=== PATIENT | male | born 1980 | race Caucasian/White ===

== ENCOUNTER 2017-04-13 12:28 | Inpatient (IN) | payer BC, OTHER ==
[~2017-04-13] VITALS: Ht 188 cm; Wt 99.8 kg
[2017-04-13 18:39] VITALS: BP 136/61
--- NOTE | 2017-04-13 18:39 | NUR ---
INTAKE ASSESSMENT Received patient in intake. He is AOX4, stable, and ambulatory. Vital signs WNL. Patient reports NKA. Pt denies any history of seizures. Explained unit protocols and patient verbalized understanding. Will admit patient upon admission to third floor.
[2017-04-13 19:15] LABS: *AMPHETAMINE, URINE NEGATIVE (NEGATIVE); *BARBITURATE, URINE NEGATIVE (NEGATIVE); *CANNABINOID, URINE NEGATIVE (NEGATIVE); *COCCAINE, URINE NEGATIVE (NEGATIVE); *OPIATE, URINE POSITIVE (NEGATIVE); *PHENCYCLIDINE SCREEN,URINE NEGATIVE (NEGATIVE)
--- NOTE | 2017-04-13 19:15 | NUR ---
ADMISSION NOTE Pt arrived ambulatory from [facility] Intake to the third floor accompanied by a SWITCHBOARD OPERATOR at 1900. Pt is a 36 year old male admitted on 04/13/17 for Opiate dependency. Pt is full code with NKA. Pt reports a PMHx of depression and Hep C +. He denies having a PCP and denies taking any home medications. He denies any recent tremors, sweats, falls or seizures. 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 He reports that he was sober from May 2014-October 03, 2016. He has been trying to taper himself off from Heroin by taking Subutex and reports being unsuccessful. He describes his current use as: 1. Heroin 0.5 gram IV daily for 6 months Last dose: 04/12/17 0.5 gram IV 2 Subutex 8mg off and on for 6 months Last dose: 14 mg on 04/13/17 Pt describes his withdrawal symptoms as " cold sweats, body aches, nausea and stomach cramps" Upon assessment, pt is alert and oriented x4, anxious, restless and cooperative. Speech is clear and audible. Heart rate is regular. Pt denies chest pain or SOB. PERRLA, breathing is even and unlabored, lung sounds clear. Abdomen is soft and non distended. Bowel sounds present in all quadrants, last BM 04/13/17. Pt reports that BM is regular. Pt's skin is warm, dry and intact. MD made aware of admission. Pt oriented to room and unit. Pt is safe with bed locked in lowest position, side rails up x2 and call light within reach. Will continue to monitor.
[2017-04-13] MEDS ORDERED: CLONIDINE HCL 0.1 MG TABLET PO PRN (20:15)
[2017-04-13] MEDS ORDERED: METHOCARBAMOL 750 MG TABLET PO PRN (20:15)
[2017-04-13] MEDS ORDERED: diphenhydrAMINE 50 MG CAPSULE PO PRN (20:15)
[2017-04-13] MEDS ORDERED: IBUPROFEN 400 MG TABLET PO PRN (20:15)
[2017-04-13] MEDS ORDERED: DICYCLOMINE HCL 20 MG TABLET PO PRN (20:15)
[2017-04-13] MEDS ORDERED: HYDROXYZINE PAMOATE 25 MG CAPSULE PO PRN (20:15)
[2017-04-13] MEDS ORDERED: MAG HYDROX/AL HYDROX/SIMETH 30 ML LIQUID UDC PO PRN (20:15)
[2017-04-13] MEDS ORDERED: ONDANSETRON ODT 4 MG TAB.RAPDIS SL PRN (20:15)
[2017-04-13] MEDS ORDERED: MAGNESIUM HYDROXIDE 30 ML LIQUID UDC PO PRN (20:15)
[2017-04-13] MEDS ORDERED: MIRALAX 17 GM POWD.PACK PO PRN (20:15)
[2017-04-13] MEDS ORDERED: LOPERAMIDE HCL 2 MG CAPSULE PO PRN ×2 (20:15)
[2017-04-13] MEDS ORDERED: ACETAMINOPHEN 325 MG TABLET PO PRN (20:15)
[2017-04-13] MEDS ORDERED: BUPRENORPHINE HCL 2 MG TAB.SUBL SL PRN (20:15)
[2017-04-13] MEDS ORDERED: ONDANSETRON 4 MG/2 ML VIAL IM PRN (20:15)
--- NOTE | 2017-04-13 20:52 | NUR ---
ONE TIME ATIVAN/PRN ROBAXIN Pt observed to be anxious and restless. Pt also complains of body aches. MD made aware. One time Ativan 2 mg and PRN Robaxin administered as ordered. Safety measures in place. Will monitor effectiveness.
[2017-04-13] MEDS ORDERED: LORAZEPAM 1 MG TABLET PO ONE (21:00)
[2017-04-13 21:04] LABS: BASOPHILS # (AUTO) 0.1 K/uL (0.0-8.0); EOSINOPHILS # (AUTO) 0.1 K/uL (0.0-0.7); EOSINOPHILS % (AUTO) 2.4 % (0.0-7.0); HEMOGLOBIN 15.6 G/DL (14.0-18.0); LYMPHOCYTES # (AUTO) 1.5 K/UL (0.8-4.8); MEAN CORPUSCULAR HEMOGLOBIN 28.3 UUG (27.0-31.0); MEAN CORPUSCULAR HGB CONC 33 g/dL (32.0-37.0); MEAN CORPUSCULAR VOLUME 85.3 FL (82.0-92.0); MONOCYTES # (AUTO) 0.6 K/UL (0.1-1.30); MONOCYTES % (AUTO) 12.6 % (0.0-11.0); NEUTROPHILS # (AUTO) 2.8 K/UL (1.8-8.9); PLATELET COUNT (AUTO) 182 K/UL (150-450); RED BLOOD CELL COUNT(AUTO) 5.51 MIL/UL (4.7-6.1); WHITE BLOOD COUNT (AUTO) 5.1 K/UL (4.0-11.2)
[2017-04-13 21:07] LABS: ALANINE AMINOTRANSFERASE 137 U/L (16-63); ALKALINE PHOSPHATASE 87 U/L (50-136); AMYLASE 75 U/L (25-115); ASPARTATE AMINOTRANSFERASE 56 U/L (15-37); BILIRUBIN,TOTAL 0.8 mg/dL (0.2-1.0); CARBON DIOXIDE 33 mmol/L (21-32); CHLORIDE 101 mmol/L (98-107); GLUCOSE 79 mg/dL (74-106); LIPASE 133 U/L (73-393); MAGNESIUM 2.2 mg/dL (1.8-2.4); POTASSIUM 3.8 mmol/L (3.5-5.1); TOTAL PROTEIN, SERUM 7.6 g/dL (6.4-8.2); UREA NITROGEN, BLOOD 22 mg/dL (7-18)
[2017-04-13 21:09] LABS: ETHANOL < 3 MG/DL (0-0)
[2017-04-13 21:18] LABS: THYROID STIMULATING HORMONE 0.612 mIU/mL (0.358-3.740)
--- NOTE | 2017-04-13 21:52 | NUR ---
REASSESSMENT Medications effective. Pt noted to be lying in bed with eyes closed and is asleep. Respirations 16, breathing even and unlabored. No s/s of facial grimacing. Safety measures in place. Will monitor.
[2017-04-14] VITALS: BP 119/69
--- NOTE | 2017-04-14 | NUR ---
COWS DEFERRED COWS deferred d/t pt lying in bed with eyes closed noted to be asleep. Respirations 16, breathing is even and unlabored. Safety measures in place. Will monitor.
--- NOTE | 2017-04-14 04:00 | NUR ---
VITALS REFUSED/COWS DEFERRED 0400 vitals refused. COWS deferred d/t pt lying in bed with eyes closed noted to be asleep. Respirations 16, breathing is even and unlabored. Safety measures in place. Will monitor.
--- NOTE | 2017-04-14 07:11 | NUR ---
END OF SHIFT Pt is a 36 year old male admitted on 04/13/17 for Opiate dependency. He reports a PMHx of depression and Hep C +. At 2051 he received one time dose of Ativan 2 mg and PRN Robaxin. He slept a total of 7 hrs, Intake: 1170mL, Void: x3, BM: 0, COWS:7. Pt remains alert and oriented x4, breathing is even and unlabored, safety measures in place. Will endorse to oncoming shift.
[2017-04-14 08:00] VITALS: BP 127/90
--- NOTE | 2017-04-14 08:10 | NUR ---
START OF SHIFT: RECEIVED PT A/O X 4. HE C/O SWATS,CHILLS,BODY ACHES,IRRITABILITY AND RESTLESSNESS. COWS 13. PRN SUBUTEX GIVEN ORDERED. PPD PLANTED TO [facility].ENCOURAGED INCREASED FLUIDS TO ASSIST IN FACILITATING DETOX PROCESS. WILL CONTINUE TO MONITOR AND MANAGE S/S OF W/D.
[2017-04-14] MEDS: MULTIVITAMINS,THERAPEUTIC TABLET PO SCH (08:27)
[2017-04-14] MEDS ORDERED: TUBERCULIN,PURIF.PROT.DERIV. 5 TU/0.1 ML TEST ID ONE (09:00)
--- NOTE | 2017-04-14 11:09 | NUR ---
Therapist prompted client about group times. Client reported he would try to go today if he feels well.
[2017-04-14 12:00] VITALS: BP 129/72
[2017-04-14] MEDS ORDERED: BUPRENORPHINE HCL 2 MG TAB.SUBL SL SCH (13:00)
--- NOTE | 2017-04-14 13:05 | NUR ---
PT REFUSED SUBUTEX. MD MADE AWARE AND TAPER MODIFIED PER MD. COWS 5. WILL CONTINUE TO MONITOR.
[2017-04-14] MEDS: BUPRENORPHINE HCL 2 MG TAB.SUBL SL SCH ×2 (15:04→20:46)
[2017-04-14 16:00] VITALS: BP 130/61
--- NOTE | 2017-04-14 18:26 | NUR ---
END OF SHIFT: PT STARTED SUBUTEX TAPER TODAY AND MORNING SUBUTEX PRN GIVEN THIS AM FOR REPORTED CHILLS,ANXIETY ,SWEATS AND BODY ACHES. COWS 13 AND WAS EFFECTIVE.PT REFUSED 1300 SUBUTEX. TAPER WAS MODIFIED PER MD. HE ATTENDED SOME GROUPS AND INTERACTED WITH PEERS. LAST COWS 4. HE IS COMPLIANT WITH TREATMENT PLAN. PPD PLANTED TO [facility]. WILL PASS SHIFT REPORT TO ONCOMING NIGHT NURSE.
--- NOTE | 2017-04-14 19:15 | NUR ---
START OF SHIFT Received 36 year old male patient admitted on 04/13/17 for Heroin and Subutex dependency. Pt is full code with NKA. He reports a PMHx of depression and Hep C+. He reports using Heroin IV 0.5 gram daily for 6 months. Last dose was 0.5 gram on 04/12/17. And Subutex 8 mg on and off for 6 months. Last dose was 14 mg on 04/13/17. Pt placed on modified 4 day Subutex taper. Per endorsement, pt refused 1300 dose of Subutex. Pt is alert and oriented x4, breathing is even and unlabored, safety measures in place. Will continue to monitor.
[2017-04-14 20:00] VITALS: BP 128/70
--- NOTE | 2017-04-14 20:46 | NUR ---
PRN BENADRYL Pt complains of inability to sleep. PRN Benadryl administered as ordered. Breathing even and unlabored, safety measures in place. Will monitor effectiveness.
--- NOTE | 2017-04-14 21:46 | NUR ---
PRN BENADRYL REASSESSMENT PRN medication effective. Pt lying in bed with eyes closed noted to be asleep. Respirations 16, breathing even and unlabored, safety measures in place. Will continue to monitor.
[2017-04-15] VITALS: BP 122/75
--- NOTE | 2017-04-15 | NUR ---
COWS DEFERRED Pt lying in bed with eyes closed noted to be asleep. Respirations 16, breathing is even and unlabored. Safety measures in place. Will continue to monitor.
--- NOTE | 2017-04-15 04:00 | NUR ---
VITALS REFUSED/COWS DEFERRED 0400 vitals refused. COWS deferred d/t pt lying in bed with eyes closed noted to be asleep. Respirations 16, breathing is even and unlabored. Safety measures in place. Will continue to monitor.
--- NOTE | 2017-04-15 07:25 | NUR ---
END OF SHIFT Pt is 36 year old male patient admitted on 04/13/17 for Heroin and Subutex dependency. Pt is full code with NKA. He reports a PMHx of depression and Hep C+. Pt continues on modified 4 day Subutex taper and tolerating well. At 2045 he received PRN Benadryl. He slept a total of 5 hrs, Intake:2000mL Void:x3 BM:0 COWS: 4. Pt remains alert and oriented x4, breathing is even and unlabored, safety measures in place. Endorsed to oncoming shift.
--- NOTE | 2017-04-15 07:45 | NUR ---
START OF SHIFT Rcvd endorsement from ongoing nurse, client is a 36 y/o admitted for opioid withdrawal, 2nd of 4 day Subutex taper, last COWS 4 @ 1999. PRN Benadryl for inability to sleep, he slept 5hrs. Client is in bed, a/o x4. he presents with depressed mood, flat affect, he states "I feel really anxious." Client noted with skin warm/moist to touch, abdomen soft, nontender, quadrant x 4 active. Encourage client to increase fluid intake to facilitate detox and to attend group therapy for skills to maintain sobriety. Denied history of withdrawal induced seizures. Client is on universal precautions. NKA, full code, regular diet. Call light within reach. Side rails x 2 up. Will continue to monitor.
[2017-04-15] MEDS: MULTIVITAMINS,THERAPEUTIC TABLET PO SCH (08:38)
[2017-04-15 08:45] VITALS: BP 111/79
[2017-04-15] MEDS ORDERED: BUPRENORPHINE HCL 2 MG TAB.SUBL SL SCH ×2 (09:00)
[2017-04-15 12:55] VITALS: BP 115/80
[2017-04-15 13:09] LABS: HEPATITIS B SURFACE AG Negative (Negative)
[2017-04-15] MEDS: GABAPENTIN 300 MG CAPSULE PO SCH ×2 (14:27→20:38)
[2017-04-15] MEDS: DICYCLOMINE HCL 20 MG TABLET PO SCH ×2 (14:28→20:38)
[2017-04-15] MEDS: BUPRENORPHINE HCL 2 MG TAB.SUBL SL SCH ×2 (14:30→20:38)
[2017-04-15 16:55] VITALS: BP 113/72
--- NOTE | 2017-04-15 18:53 | NUR ---
END OF SHIFT Will endorse client to incoming nurse, client continues with Subutex taper 2nf out of 4th day, last COWS 4 @ 1700. Client presents with anxious mood, flat affect and fatigue. He had an uneventful day.Client was compliant with group therapy. Adequate intake 2890mL, void x 6, stool x 1. Client is fully ambulatory. Call light within reach. Safety measures rendered and all needs me
--- NOTE | 2017-04-15 19:00 | NUR ---
Start of Shift Patient Received. Patient is in activities room participating in a group meeting. Patient is a 36 year old male, admitted on 04/13/17 under the care of Dr. Tillman. Patient is currently receiving a modified 4 day Subutex taper. Patient verbalizes no known allergies, wishes to be full code, following a regular diet, placed on fall precautions, skin noted intact. Past medical history noted as Depression and Hep C+. Per endorsement, patients last noted COWS is 4. Patient noted to be compliant with medications and plan of care. Will continue plan of care as ordered.
[2017-04-15 20:36] VITALS: BP 117/71
[2017-04-16 00:43] VITALS: BP 121/74
[2017-04-16 04:10] VITALS: BP 114/70
--- NOTE | 2017-04-16 06:58 | NUR ---
End of Shift Patient is in bed sleeping. Breathing even and non labored. No signs of pain or discomfort noted. Patient continues on modified 4 day taper as ordered. Patient is able to verbalize that taper medication is effective in minimizing signs and symptoms of withdrawal. Patient also noted to participate in social activities and meetings. Last Noted COWS 5. No PRN medications administered. All needs attended to promptly. Will endorse to continue plan of care as ordered.
--- NOTE | 2017-04-16 07:33 | NUR ---
START OF SHIFT Rcvd endorsement from ongoing nurse, client is a 36 y/o admitted for opioid withdrawal, 3rd of 4 day Subutex taper, last COWS 5 @ 2000. Client had an uneventful night, he slept 5 hrs. Client is in bed, a/o x4. he presents with anxious mood, he stated "I had a hard time going to sleep, I really don't want to depend on pills anymore." Skin warm/moist to touch, abdomen soft, nontender, quadrant x 4 active. Encourage client to verbalize lifestyle changes, to increase fluid intake to facilitate detox and to attend group therapy for skills to maintain sobriety. Denied history of withdrawal induced seizures. Client is on universal precautions. NKA, full code, regular diet. Call light within reach. Side rails x 2 up. Will continue to monitor.
[2017-04-16 08:08] VITALS: BP 108/66
[2017-04-16] MEDS: DICYCLOMINE HCL 20 MG TABLET PO SCH ×3 (08:33→20:35)
[2017-04-16] MEDS: BUPRENORPHINE HCL 2 MG TAB.SUBL SL SCH ×3 (08:33→20:35)
[2017-04-16] MEDS: GABAPENTIN 300 MG CAPSULE PO SCH (08:33)
[2017-04-16] MEDS: MULTIVITAMINS,THERAPEUTIC TABLET PO SCH (08:33)
[2017-04-16] MEDS ORDERED: BUPRENORPHINE HCL 2 MG TAB.SUBL SL SCH ×2 (09:00→15:00)
--- NOTE | 2017-04-16 09:00 | NUR ---
Zero induration noted at L F/A TB site
--- NOTE | 2017-04-16 09:30 | NUR ---
Nursing notes Client reports constipation, but refuses medication at this time. Encourage to increase fiber, fluid intake and activity as tolerated to facilitate a BM, he verbalized understanding. Abdomen soft, non-tender, quadrants x 4 active.
[2017-04-16 12:55] VITALS: BP 136/70
[2017-04-16] MEDS: GABAPENTIN 400 MG CAPSULE PO SCH ×2 (14:23→20:35)
--- NOTE | 2017-04-16 16:38 | NUR ---
Therapist prompted client to attend daily group therapy. Client stated that he would attend.
[2017-04-16 16:58] VITALS: BP 128/68
--- NOTE | 2017-04-16 19:00 | NUR ---
Start of Shift Patient Received. Patient is in activities room participating in a group meeting. Patient is a 36 year old male, admitted on 04/13/17 under the care of Dr. Tillman. Patient is currently receiving a modified 4 day Subutex taper. Patient verbalizes no known allergies, wishes to be full code, following a regular diet, placed on fall precautions, skin noted intact. Past medical history noted as Depression and Hep C+. Per endorsement, TB reassessed and noted to be negative. 1 BM reported by patient. Last noted COWS 3. Patient noted to be compliant with medications and plan of care. Will continue plan of care as ordered.
--- NOTE | 2017-04-16 19:07 | NUR ---
END OF SHIFT Will endorse client to incoming nurse, client continues with Subutex taper 3rd out of 4 day, last COWS 3 @ 1700. Client presents with depressed mood, flat affect and restless legs. Client is fully ambulatory. Dr Tillman increased Neurontin to 400mg TID for management of restless legs. Zero induration noted at L F/A TB site. He had an uneventful day.Client was compliant with group therapy. Adequate intake 4084mL, void x 10, stool x 1. Call light within reach. Safety measures rendered and all needs met.
[2017-04-16 20:00] VITALS: BP 117/69
[2017-04-17 00:20] VITALS: BP 118/75
[2017-04-17 04:05] VITALS: BP 112/69
--- NOTE | 2017-04-17 06:35 | NUR ---
PRN Medication Administration patient verbalizing pain of 02/16 due to toothache. PRN Motrin administered as per order. Will continue to monitor. Addendum: 04/17/17 at 0719 by FAITH GUTHRIE LVN ENTERED IN ERROR
--- NOTE | 2017-04-17 06:57 | NUR ---
End of Shift Patient is in bed sleeping. Breathing even and non labored. No signs of pain or discomfort noted. Patient continues on 5 day Subutex and 5 day Ativan tapers. Patient is able to verbalize taper medication is noted to be effective. Ongoing treatment orders for Left hand, thumb and groin area. Patient also continues on Acyclovir Q12H. PRN Motrin administered for pain due to a toothache medication noted to be effective due to patient in bed sleeping. Patient noted to be compliant with social activities and meetings. All needs attended to promptly. Will endorse to continue plan of care as ordered. Addendum: 04/17/17 at 0715 by FAITH GUTHRIE LVN ENTERED IN ERROR
--- NOTE | 2017-04-17 07:15 | NUR ---
End of Shift Patient is in bed sleeping. Breathing even and non labored. No signs of pain or discomfort noted. Patient continues on modified 4 day taper as ordered. Patient is tolerating taper medication well and is able to verbalize that taper medication is effective in minimizing signs and symptoms of withdrawal. Patient also noted to participate in social activities and meetings. Last Noted COWS 4. No PRN medications administered. All needs attended to promptly. Will endorse to continue plan of care as ordered.
--- NOTE | 2017-04-17 07:35 | NUR ---
START OF SHIFT Rcvd endorsement from ongoing nurse, client is a 36 y/o admitted for opioid withdrawal, he is on last of 4 day Subutex taper, last COWS 5 @ 2000. Client had an uneventful night, he slept 5 hrs. Client is in bed, a/o x4. he presents with anxious mood, he stated "I feel very anxious, I can not relapse again, my girlfriend does not understand my addiction." Client appears irritable, skin warm/moist to touch, abdomen soft, nontender, quadrant x 4 active. Encourage client to verbalize lifestyle changes, to increase fluid intake to facilitate detox and to attend group therapy for skills to maintain sobriety. Denied history of withdrawal induced seizures. Client is on universal precautions. NKA, full code, regular diet. Call light within reach. Side rails x 2 up. Will continue to monitor.
[2017-04-17 08:07] VITALS: BP 123/73
[2017-04-17] MEDS: DICYCLOMINE HCL 20 MG TABLET PO SCH ×3 (08:33→21:00)
[2017-04-17] MEDS: GABAPENTIN 400 MG CAPSULE PO SCH ×3 (08:33→21:40)
[2017-04-17] MEDS: MULTIVITAMINS,THERAPEUTIC TABLET PO SCH (08:33)
[2017-04-17] MEDS ORDERED: BUPRENORPHINE HCL 2 MG TAB.SUBL SL SCH ×2 (09:00)
[2017-04-17] MEDS: IBUPROFEN 600 MG TABLET PO PRN ×2 (10:12→16:16)
--- NOTE | 2017-04-17 10:12 | NUR ---
PRN Motrin 600mg Client reports ÁLVAREZ 5/10 frontal area, does not radiate, no dizziness. Encourage to increase fluid intake as tolerated. Call light within reach. Will continue to monitor.
--- NOTE | 2017-04-17 11:12 | NUR ---
PRN Motrin 600mg Client reports relief from ÁLVAREZ 0. Motrin 600mg effective. Call light within reach. Will continue to monitor. Addendum: 04/17/17 at 1145 by BEATRICE MONSALVE RN reassessment
[2017-04-17 12:00] VITALS: BP 123/71
[2017-04-17] MEDS ORDERED: HYDR-3895 PO (14:03)
[2017-04-17] MEDS ORDERED: CLON0.1T14 PO (14:03)
[2017-04-17] MEDS ORDERED: METH-406 PO (14:03)
[2017-04-17] MEDS ORDERED: DIPH50CA37 PO (14:03)
[2017-04-17] MEDS ORDERED: IBUP-1955 PO (14:03)
[2017-04-17] MEDS ORDERED: DICY20TA28 PO (14:03)
[2017-04-17] MEDS ORDERED: GABA-536 PO (14:03)
--- NOTE | 2017-04-17 15:30 | NUR ---
Client refused Bentyl 20mg stating, I just want to see if I can do it on my own." Risk/benefits discuss with client, but he still declined the medication.
--- NOTE | 2017-04-17 16:16 | NUR ---
PRN Motrin 600mg Client reports ÁLVAREZ 6/10 frontal area, does not radiate. Encourage to increase fluid intake as tolerated. Call light within reach. Will continue to monitor
[2017-04-17 16:55] VITALS: BP 132/75
--- NOTE | 2017-04-17 17:16 | NUR ---
Reassessment PRN Motrin 600mg Client reports relief from ÁLVAREZ 0/10, Motrin 600mg effective. Call light within reach. Will continue to monitor.
[2017-04-17 17:22] LABS: *AMPHETAMINE, URINE NEGATIVE (NEGATIVE); *BARBITURATE, URINE NEGATIVE (NEGATIVE); *CANNABINOID, URINE NEGATIVE (NEGATIVE); *COCCAINE, URINE NEGATIVE (NEGATIVE); *OPIATE, URINE NEGATIVE (NEGATIVE); *PHENCYCLIDINE SCREEN,URINE NEGATIVE (NEGATIVE)
--- NOTE | 2017-04-17 18:18 | NUR ---
END OF SHIFT Will endorse client to incoming nurse, client completed 4 day Subutex taper, last COWS 3 @ 1700. Client is scheduled for discharge tomorrow morning. Urine drug screen on chart. Client presents with anxious mood, flat affect and reports chills. Client is fully ambulatory. PRN Motrin 600mg x 2 for ÁLVAREZ, noted effective. Client was compliant with group therapy. Adequate intake 3216mL, void x 10, stool x 1. Call light within reach. Safety measures rendered and all needs met.
[2017-04-17 20:00] VITALS: BP 125/68
--- NOTE | 2017-04-17 20:00 | NUR ---
START OF SHIFT NOTE PATIENT IN HIS ROOM, ALERT AND ORIENTED X 4. RESPIRATION EVEN AND UNLABORED. PATIENT STATES HE'S ALRIGHT AND STATES THAT HE'S LEAVING TOMORROW. NO N/V. NO SWEATING. PATIENT C/O HEADACHE 12/17 BUT TOLERABLE. RECEIVED REPORT FROM DAY SHIFT NURSE. PATIENT IS A 36 YEAR OLD MALE, ADMITTED FOR HEROIN/SUBUTEX DEPENDENCE. PATIENT COMPLETED MODIFIED 4 DAY SUBUTEX TAPER. PATIENT IS MEDICALLY CLEARED TO BE DISCHARGE TOMORROW. PATIENT IS A FULL CODE, REGULAR DIET AND NO KNOWN ALLERGY. UPON ADMISSION, PATIENT REPORTED USING FOR 6 MONTHS. PATIENT'S DRUG OF CHOICE ARE HEROIN IV 0.5 GRAM AND SUBUTEX 8 MG ON/OFF. PATIENT REPORTS PMH OF DEPRESSION AND HEP C+. PATIENT IS ON FALL PRECAUTION. SKIN INTACT. PATIENT WAS GIVEN PRN MOTRIN FOR HEADACHE. LAST COWS 3. SAFETY MEASURES IN PLACE. CALL LIGHT IN REACH. WILL CONTINUE TO MONITOR.
--- NOTE | 2017-04-17 21:00 | NUR ---
REFUSED BENTYL PATIENT REFUSED BENTYL. PER PATIENT "I DON'T NEED IT". EXPLAINED RISKS/BENEFITS. WILL CONTINUE TO MONITOR.
--- NOTE | 2017-04-18 | NUR ---
COWS/VS PATIENT ASLEEP . COWS UNABLE TO ASSESS. RESPIRATION EVEN AND UNLABORED. RR 15. SAFETY MEASURES IN PLACE. CALL LIGHT IN REACH. WILL CONTINUE TO MONITOR
--- NOTE | 2017-04-18 04:00 | NUR ---
COWS/VS PATIENT ASLEEP. COWS UNABLE TO ASSESS. RESPIRATION EVEN AND UNLABORED. RR 15. SAFETY MEASURES IN PLACE. CALL LIGHT IN REACH. WILL CONTINUE TO MONITOR
--- NOTE | 2017-04-18 07:20 | NUR ---
END OF SHIFT NOTE PATIENT HAD UNEVENTFUL NIGHT . PATIENT REMAIN ALERT AND ORIENTED X 4. RESPIRATION EVEN AND UNLABORED. PATIENT STATES HE'S ALRIGHT THAT HE'S LEAVING TODAY. NO N/V. NO SWEATING. PATIENT C/O HEADACHE 12/17 BUT TOLERABLE DURING SHIFT. PATIENT IS A 36 YEAR OLD MALE, ADMITTED FOR HEROIN/SUBUTEX DEPENDENCE. PATIENT COMPLETED MODIFIED 4 DAY SUBUTEX TAPER. PATIENT IS MEDICALLY CLEARED TO BE DISCHARGE TODAY. PATIENT IS FULL CODE, REGULAR DIET AND NO KNOWN ALLERGY. UPON ADMISSION, PATIENT REPORTED USING FOR 6 MONTHS. PATIENT'S DRUG OF CHOICE ARE HEROIN IV 0.5 GRAM AND SUBUTEX 8 MG ON/OFF. PATIENT REPORTS PMH OF DEPRESSION AND HEP C+. PATIENT IS ON FALL PRECAUTION. SKIN INTACT. PATIENT DID NOT REQUIRE ANY PRN MEDICATION DURING SHIFT. PATIENT REFUSED BENTYL AT 2100. EXPLAINED RISKS/BENEFITS. LAST COWS 1. SAFETY MEASURES IN PLACE. CALL LIGHT IN REACH. WILL CONTINUE TO MONITOR. SLEPT 7 HOURS. FLUID INTAKE 1,301 ML. VOIDED X 2 . NO BM.
--- NOTE | 2017-04-18 07:56 | NUR ---
START OF SHIFT Received report from rn shift mgr nurse. 36 year old male patient admitted on 04/13/17 for opiate withdrawals. Pt has completed ordered taper and is medically stable for discharge. Reported hx of depression and hepatitis C. No PRN medications needed or administered at night. Pt slept for 7 hours. Most recent CIWA at 1999 is 1. Pt remains safe throughout night. No acute s/s of withdrawal presented at this time. Will continue to monitor.
[2017-04-18 08:02] VITALS: BP 111/74
[2017-04-18] MEDS: DICYCLOMINE HCL 20 MG TABLET PO SCH (08:32)
[2017-04-18] MEDS: GABAPENTIN 400 MG CAPSULE PO SCH (08:32)
[2017-04-18] MEDS: MULTIVITAMINS,THERAPEUTIC TABLET PO SCH (08:32)
[2017-04-18] MEDS ORDERED: BUPRENORPHINE HCL 2 MG TAB.SUBL SL SCH (09:00)
--- NOTE | 2017-04-18 10:53 | NUR ---
D/C NOTES Pt is A/O x4. V/S remain WNL. Pt denies SI/HI or hallucinations. Pt shows no s/s of acute withdrawal at this time, and is stable. has medically cleared pt for d/c. Education on Hepatitis C, smoking cessation and medication side effects provided. Pt verbalizes understanding. All pt belongings are in belonging bag, including prescriptions, pt did not have any home medications. Pt is being accompanied by SENIOR EDITOR at this time to be transported to [facility], d/c location is home. All needs met.
== END 2017-04-18 10:53 | disposition home or self-care (01) | DRG 895 ==
LOC: SRC 17:59
PROVIDERS: ADMIT Internal Medicine; ATTEND Internal Medicine
PROC: HZ2ZZZZ Detoxification Services for Substance Abuse Treatment (ICD-10-PCS; principal; 2017-04-13)
PROC: HZ41ZZZ Group Counseling for Substance Abuse Treatment, Behavioral (ICD-10-PCS; 2017-04-14)
PROC: HZ31ZZZ Individual Counseling for Substance Abuse Treatment, Behavioral (ICD-10-PCS; 2017-04-14)
DX: F11.23 Opioid dependence with withdrawal (principal); E87.3 Alkalosis; F17.210 Nicotine dependence, cigarettes, uncomplicated; B19.20 Unspecified viral hepatitis C without hepatic coma; E86.0 Dehydration; F14.21 Cocaine dependence, in remission; F13.21 Sedative, hypnotic or anxiolytic dependence, in remission
CPT/HCPCS: 36415; 70030-TC; 80307; 80361; 83690; 83735; 84443; 85025; 86580; 86592; 86705; 86803; 87340; 87806; G0480; Q0163

== ENCOUNTER 2017-08-08 20:50 | Inpatient (IN) | payer BC, OTHER ==
[~2017-08-08] VITALS: Ht 188 cm; Wt 86.2 kg
[~2017-08-08 20:50] MED LIST: CLON0.1T14 PO; DICY20TA28 PO; DIPH50CA37 PO; GABA-536 PO; HYDR-3895 PO; IBUP-1955 PO; METH-406 PO
[2017-08-08] MEDS ORDERED: DICYCLOMINE HCL 20 MG TABLET PO PRN (22:15)
[2017-08-08] MEDS ORDERED: MIRALAX 17 GM POWD.PACK PO PRN (22:15)
[2017-08-08] MEDS ORDERED: IBUPROFEN 600 MG TABLET PO PRN (22:15)
[2017-08-08] MEDS ORDERED: BUPRENORPHINE HCL 2 MG TAB.SUBL SL PRN (22:15)
[2017-08-08] MEDS ORDERED: CLONIDINE HCL 0.1 MG TABLET PO PRN (22:15)
[2017-08-08] MEDS ORDERED: LOPERAMIDE HCL 2 MG CAPSULE PO PRN ×2 (22:15)
[2017-08-08] MEDS ORDERED: HYDROXYZINE PAMOATE 25 MG CAPSULE PO PRN (22:15)
[2017-08-08] MEDS ORDERED: LORAZEPAM 1 MG TABLET PO PRN (22:15)
[2017-08-08] MEDS ORDERED: ONDANSETRON 4 MG/2 ML VIAL IM PRN (22:15)
[2017-08-08] MEDS ORDERED: ONDANSETRON ODT 4 MG TAB.RAPDIS SL PRN (22:15)
[2017-08-08] MEDS ORDERED: ACETAMINOPHEN 325 MG TABLET PO PRN (22:15)
[2017-08-08] MEDS ORDERED: MAG HYDROX/AL HYDROX/SIMETH 30 ML LIQUID UDC PO PRN (22:15)
[2017-08-08 22:27] LABS: *AMPHETAMINE, URINE NEGATIVE (NEGATIVE); *BARBITURATE, URINE NEGATIVE (NEGATIVE); *CANNABINOID, URINE NEGATIVE (NEGATIVE); *COCCAINE, URINE NEGATIVE (NEGATIVE); *OPIATE, URINE POSITIVE (NEGATIVE); *PHENCYCLIDINE SCREEN,URINE NEGATIVE (NEGATIVE)
--- NOTE | 2017-08-08 22:30 | NUR ---
Pre admission note Pt seen in intake office. Pt appears mildly intoxicated upon admission but in stable condition. V/S WNL. No s/s of distress noted at this time. Respirations even and unlabored. Policies in medication disposal explained to and understood by patient. Will admit pt to unit.
--- NOTE | 2017-08-08 22:45 | NUR ---
Admission note Pt is a 36 yo male, A+Ox4, presenting to [facility] for Opiate dependence. Pt has NKA, is on Full code status, and on Regular diet. Pt is on Fall precautions. Pt is 6'2" in height and 190 LBS in weight. Pt has medical HX of Hep C+. Pt has family HX of Substance abuse from father and mother. Pt has no primary care provider. Pt has been using Heroin IV for 23 years (3 months currently), has reached a level of 0.5-1gm/daily, and last dose was 0.5gm on 08-08-17 @0600. Pt is not taking any home medications. Pt has Hx of previous detox/rehab for 5 days @ [facility] in April 2017. this was the patients last time sober. Pt has been a cigarette smoker for 21 years and has reached a rate of 10/daily. Pt appears mildly intoxicated upon admission but in stable condition. V/S WNL. No s/s of distress noted at this time. Respirations even and unlabored. Will continue to monitor.
[2017-08-08] MEDS ORDERED: LORAZEPAM 1 MG TABLET PO ONE (23:15)
[2017-08-08 23:26] LABS: BASOPHILS # (AUTO) 0.1 K/uL (0.0-8.0); BASOPHILS % (AUTO) 0.8 % (0.0-2.0); EOSINOPHILS # (AUTO) 0.2 K/uL (0.0-0.7); EOSINOPHILS % (AUTO) 2.4 % (0.0-7.0); HEMATOCRIT 42.3 % (40-50); HEMOGLOBIN 14.1 G/DL (14.0-18.0); LYMPHOCYTES # (AUTO) 1.6 K/UL (0.8-4.8); LYMPHOCYTES % (AUTO) 24.6 % (20.5-51.5); MEAN CORPUSCULAR HEMOGLOBIN 28.2 UUG (27.0-31.0); MEAN CORPUSCULAR HGB CONC 33 g/dL (32.0-37.0); MEAN CORPUSCULAR VOLUME 85.1 FL (82.0-92.0); MONOCYTES # (AUTO) 0.8 K/UL (0.1-1.30); NEUTROPHILS # (AUTO) 3.8 K/UL (1.8-8.9); NEUTROPHILS % (AUTO) 60.2 % (38.5-71.5); PLATELET COUNT (AUTO) 206 K/UL (150-450); RED BLOOD CELL COUNT(AUTO) 4.98 MIL/UL (4.7-6.1); WHITE BLOOD COUNT (AUTO) 6.5 K/UL (4.0-11.2)
[2017-08-08 23:42] LABS: ALANINE AMINOTRANSFERASE 81 U/L (16-63); ALKALINE PHOSPHATASE 80 U/L (50-136); ASPARTATE AMINOTRANSFERASE 35 U/L (15-37); BILIRUBIN,TOTAL 0.5 mg/dL (0.2-1.0); CARBON DIOXIDE 28 mmol/L (21-32); CHLORIDE 104 mmol/L (98-107); GLUCOSE 92 mg/dL (74-106); MAGNESIUM 1.8 mg/dL (1.8-2.4); POTASSIUM 3.7 mmol/L (3.5-5.1); TOTAL PROTEIN, SERUM 7.3 g/dL (6.4-8.2); UREA NITROGEN, BLOOD 26 mg/dL (7-18)
[2017-08-08 23:51] LABS: ETHANOL < 3 MG/DL (0-0)
--- NOTE | 2017-08-09 00:35 | NUR ---
PRN Subutex 4mg Pt noted with COWS: 12. PRN Subutex 4mg given and tolerated well. Will reassess within 1 HR. Will continue to monitor.
[2017-08-09] MEDS ORDERED: LORAZEPAM 1 MG TABLET ONE (00:44)
[2017-08-09] MEDS ORDERED: BUPRENORPHINE HCL 2 MG TAB.SUBL SL ONE (00:45)
[2017-08-09 00:51] VITALS: BP 124/70
--- NOTE | 2017-08-09 01:05 | NUR ---
PRN Subutex 4mg Reassessment Medication effective. COWS: 6. No s/s of ASE/distress noted at this time. Respirations even and unlabored. Will continue to monitor.
[2017-08-09 04:02] VITALS: BP 122/73
--- NOTE | 2017-08-09 06:50 | NUR ---
End of shift note Pt is a 36 yo male, A+Ox4, presenting to [facility] for Opiate dependence. Pt has NKA, is on Full code status, and on Regular diet. Pt is on Fall precautions. Pt has medical HX of Hep C+. Pt is on 5 day Subutex taper to start today. Pt was given PRN Subutex 4mg @0035. Pt slept for a total of 4 HRS. Last COWS: 4 @0400. No s/s of distress noted at this time. Respirations even and unlabored. Will endorse to day shift nurse.
[2017-08-09] MEDS ORDERED: DICYCLOMINE HCL 10 MG CAPSULE PO PRN (07:45)
[2017-08-09 08:00] VITALS: BP 115/66
--- NOTE | 2017-08-09 08:00 | NUR ---
START OF SHIFT: RECEIVED PT A/O X 4. HE REPORTS CHILLS,SWEATS,BODY ACHES,ANXIETY AND RESTLESSNESS. COWS 13 SUBUTEX TAPER IN PROGRESS. PPD PLANTED TO [facility]. ENCOURAGED INCREASED FLUIDS AND REST TODAY. WILL CONTINUE TO MONITOR AND OFFER SUPPORT.
[2017-08-09] MEDS ORDERED: TUBERCULIN,PURIF.PROT.DERIV. 5 TU/0.1 ML TEST ID ONE (09:00)
[2017-08-09] MEDS: BUPRENORPHINE HCL 2 MG TAB.SUBL SL SCH ×4 (09:33→20:54)
[2017-08-09 12:00] VITALS: BP 103/69
[2017-08-09 16:00] VITALS: BP 115/67
--- NOTE | 2017-08-09 16:46 | NUR ---
PRN ATIVAN GIVEN FOR AGITATION. PT REPORTS HE FEELS SEVERELY AGITATED AND IS VERY FIDGETY. WILL MONITOR EFFECTIVENESS.
--- NOTE | 2017-08-09 17:35 | NUR ---
PT STATES THE ATIVAN WAS EFFECTIVE . HE STATES HE FEELS LESS AGITATED.
--- NOTE | 2017-08-09 18:39 | NUR ---
END OF SHIFT: PT STARTED SUBUTEX TAPER TODAY LAST COWS 7. HE C/O BODY ACHES CHILLS,SWEATS AND BECAME VERY AGITATED THIS AFTERNOON AND WAS GIVEN PRN ATIVAN 2 MG PO AND STATES IT WAS EFFECTIVE. HE WAS COMPLIANT WITH INCREASED FLUIDS AND RESTED A LITTLE. WILL PASS SHIFT REPORT TO ONCOMING NIGHT NURSE.
--- NOTE | 2017-08-09 19:30 | NUR ---
START OF SHIFT Pt is a 36 y/o male admitted on 08/08/17 for opiate dependence. Pt was dependent on heroin IV 0.5-1 gram daily for 3 months. Pt is on seizure/fall precautions, NKA, full code, regular diet. 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 Pt reports PMH of hepatitis C. Pt is on a 5 day Subutex taper that started today, tolerating well. Upon assessment pt laying in bed watching TV and presents with anxiety, body aches 6/10, stomach cramps, decreased appetite, chills, sweats, occasional agitation, nasal congestion, rhinorrhea, dysphoria, enhedonia and fatigue. Respirations 16, even and unlabored. Denies N/V/D. Denies chest pain or SOB. Medications due. Safety measures in place. Call light within reach. Will continue to monitor.
[2017-08-09 20:00] VITALS: BP 114/70
[2017-08-09] MEDS: diphenhydrAMINE 50 MG CAPSULE PO PRN (20:54)
[2017-08-09] MEDS: METHOCARBAMOL 750 MG TABLET PO PRN (20:54)
--- NOTE | 2017-08-09 20:54 | NUR ---
PRN SHWANEE GOVEA ROBAXIN AND REFUSAL OF GABAPENTIN 300 MG Pt requests sleep aid. Pt reports stomach cramps, denies N/V/D. Pt also reports body aches 03/19. Pt refused gabapentin 300 mg, pt states, "It doesn't do anything." Provided education about medication, but pt refused. Safety measures in place. Call light within reach. Will continue to monitor.
[2017-08-09] MEDS: GABAPENTIN 300 MG CAPSULE PO SCH (20:57)
--- NOTE | 2017-08-09 21:54 | NUR ---
SHAWNEE OSCAR AND NEO REASSESSMENT Pt is laying in bed with eyes closed, will continue to assess for S/S of withdrawal when pt is awake. Safety measures in place. Call light within reach.
[2017-08-10] VITALS: BP 119/75
--- NOTE | 2017-08-10 | NUR ---
COW DEFERRED Pt is laying in bed with eyes closed, COW to be assessed when pt is awake per orders. Respirations 14, even and unlabored. Safety measures in place. Call light within reach. Will continue to monitor.
[2017-08-10 04:00] VITALS: BP 116/76
--- NOTE | 2017-08-10 04:00 | NUR ---
COW DEFERRED Pt is laying in bed with eyes closed, COW deferred, to be assessed when pt is awake per orders. Respirations 16, even and unlabored. Safety measures in place. Call light within reach. Will continue to monitor.
--- NOTE | 2017-08-10 07:13 | NUR ---
END OF SHIFT Pt is a 36 y/o male admitted on 08/08/17 for opiate dependence. Pt was dependent on heroin IV 0.5-1 gram daily for 3 months. Pt is on seizure/fall precautions, NKA, full code, regular diet. 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 Pt reports PMH of hepatitis C. Pt is on a 5 day Subutex taper that started 08/09/17, tolerating well. Pt presented with anxiety, body aches 6/10, stomach cramps, decreased appetite, chills, sweats, occasional agitation, nasal congestion, rhinorrhea, dysphoria, enhedonia and fatigue. Scheduled medications and PRN Benadryl, Bentyl and Robaxin administered, effective in S/S of withdrawal as verbalized by pt. Last COW 6 at 1999, unable to reassess d/t pt sleeping. Pt slept 10 hours. Intake 1000 ml, void x 2, stool x 0. Safety measures in place. Call light within reach. Pts needs have been met.
[2017-08-10 08:00] VITALS: BP 108/71
[2017-08-10 08:06] LABS: HEPATITIS B SURFACE AG Negative (Negative)
--- NOTE | 2017-08-10 08:10 | NUR ---
START OF SHIFT: RECEIVED PT A/O X 4. HE REPORTS CHILLS,SEVERE BODY ACHES,ANXIETY AND RESTLESSNESS. COWS 7. SUBUTEX TAPER IN PROGRESS. PRN ROBAXIN AND MOTRIN GIVEN TO MANAGE BODY ACHES. WILL MONITOR EFFECTIVENESS. ENCOURAGED INCREASED FLUIDS TO ASSIST IN FACILITATING DETOX PROCESS. WILL CONTINUE TO MONITOR AND OFFER SUPPORT.
[2017-08-10] MEDS: GABAPENTIN 300 MG CAPSULE PO SCH ×3 (08:47→20:52)
[2017-08-10] MEDS: BUPRENORPHINE HCL 2 MG TAB.SUBL SL SCH ×3 (08:47→20:53)
[2017-08-10] MEDS: METHOCARBAMOL 750 MG TABLET PO PRN ×2 (08:47→20:52)
--- NOTE | 2017-08-10 09:10 | NUR ---
PRN MOTRIN AND ROBAXIN EFFECTIVE. PT STATES BODY ACHES HAVE LESSENED. WILL CONTINUE TO MONITOR.
[2017-08-10 12:00] VITALS: BP 109/70
--- NOTE | 2017-08-10 15:11 | NUR ---
Therapist prompted client to attend group. Client agreed to attend.
[2017-08-10 16:00] VITALS: BP 120/60
--- NOTE | 2017-08-10 19:11 | NUR ---
END OF SHIFT: PT CONTINUES ON SUBUTEX TAPER . LAST COWS 6 . HE C/O BODY ACHES CHILLS,SWEATS AND ANXIETY. PRN MOTRIN AND PRN ROBAXIN GIVEN WITH AM MEDS AND EFFECTIVE. HE WAS COMPLIANT WITH INCREASED FLUIDS. WILL PASS SHIFT REPORT TO ONCOMING NIGHT NURSE.
--- NOTE | 2017-08-10 19:30 | NUR ---
START OF SHIFT Pt is a 36 y/o male admitted on 08/08/17 for opiate dependence. Pt was dependent on heroin IV 0.5-1 gram daily for 3 months. Pt is on seizure/fall precautions, NKA, full code, regular diet. 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 Pt reports PMH of hepatitis C. Pt is on a 5 day Subutex taper that started today, tolerating well. Upon assessment pt laying in bed watching TV and presents with anxiety, body aches 4/10, decreased appetite, difficulty sleeping, chills, sweats, occasional agitation, nasal congestion, rhinorrhea, dysphoria, anhedonia and fatigue. Respirations 16, even and unlabored. Denies N/V/D. Denies chest pain or SOB. Medications due. Safety measures in place. Call light within reach. Will continue to monitor. Addendum: 08/11/17 at 0250 by KAVITA ZUÑIGA RN Taper started on 08/09/17 Addendum: 08/11/17 at 0316 by KAVITA ZUÑIGA RN Pt also on 4 day Ativan taper started 08/10/17.
[2017-08-10 20:00] VITALS: BP_SYST 114; BP_DIAS 62; BP_DIAS 72
[2017-08-10] MEDS: diphenhydrAMINE 50 MG CAPSULE PO PRN (20:52)
--- NOTE | 2017-08-10 20:52 | NUR ---
DORITA GOVEA AND ROBAXIN ADMINISTRATION Pt requests sleep aid and reports body aches 01/17. Safety measures in place. Call light within reach. Will continue to monitor.
[2017-08-10] MEDS: CLONIDINE HCL 0.1 MG TABLET PO SCH (20:53)
[2017-08-10] MEDS ORDERED: LORAZEPAM 1 MG TABLET PO SCH (21:00)
--- NOTE | 2017-08-10 21:52 | NUR ---
DORITA GOVEA AND NEO REASSESSMENT Pt is awake talking to other patients, states "I will go to bed soon." Reports body aches have ceased. Will continue to monitor.
--- NOTE | 2017-08-11 | NUR ---
VITALS REFUSED AND COW DEFERRED Pt is laying in bed with eyes closed, vitals refused. Respirations 16, even and unlabored. COW deferred, to be assessed when pt is fully awake per orders. Safety measures in place. Call light within reach. Will continue to monitor.
--- NOTE | 2017-08-11 04:00 | NUR ---
VITALS REFUSED AND COW/CIWA DEFERRED Pt laying in bed with eyes closed, COW/CIWA deferred. Vitals refused. Respirations 16, even and unlabored. Safety measures in place. Call light within reach. Will continue to monitor.
--- NOTE | 2017-08-11 07:18 | NUR ---
END OF SHIFT Pt is a 36 y/o male admitted on 08/08/17 for opiate dependence. Pt was dependent on heroin IV 0.5-1 gram daily for 3 months. Pt also reports using Xanax unspecified amount on an intermittent, non-daily basis. .00Pt is on seizure/fall precautions, NKA, full code, regular diet. 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 Pt reports PMH of hepatitis C. Pt is on a 5 day Subutex taper started 08/09/17 and 4 day Ativan taper started 08/10/17, tolerating well. Pt presented with anxiety, body aches /10, decreased appetite, difficulty sleeping, chills, sweats, occasional agitation, nasal congestion, rhinorrhea, dysphoria, anhedonia and fatigue. Scheduled medications and PRN Robaxin and Benadryl administered, effective in S/S of withdrawal as verbalized by pt. Last COW 4 CIWA 4. Slept 5 hours. Intake 1450 ml, void x 3, stool x 0. Safety measures in place. Call light within reach. Pts needs have been met. Endorsed to day shift nurse.
[2017-08-11 08:00] VITALS: BP 113/70
[2017-08-11] MEDS ORDERED: BUPRENORPHINE HCL 2 MG TAB.SUBL SL SCH (09:00)
[2017-08-11] MEDS: LORAZEPAM 1 MG TABLET PO SCH ×3 (09:36→20:40)
[2017-08-11] MEDS: GABAPENTIN 300 MG CAPSULE PO SCH ×3 (09:36→20:39)
--- NOTE | 2017-08-11 10:00 | NUR ---
START OF SHIFT Received report from animal herder nurse. Patient is 36 year old male admitted for medically supervised withdrawal from heroin and alprazolam. Patient is full code with NKA. Patient is alert and oriented X4. On 4-Day Ativan and 5-day Subutex taper. Most recent CIWA: 4 and COWS: 5 Denies SOB, chest pain. Vitals signs: WNL. Reports mild anxiety, mild tremors, stomach cramps, body aches, and chills. Denies tactile disturbances, piloerection, nausea, vomiting, auditory and visual hallucinations. Compliant with AM meds. Tolerating his meals at this time. Patient was encouraged to attend group meetings today. Will continue to monitor patient.
[2017-08-11 12:00] VITALS: BP 112/70
[2017-08-11] MEDS: BUPRENORPHINE HCL 2 MG TAB.SUBL SL SCH ×2 (14:35→20:40)
[2017-08-11] MEDS: DICYCLOMINE HCL 20 MG TABLET PO SCH ×2 (14:35→20:39)
[2017-08-11 16:00] VITALS: BP 102/63
--- NOTE | 2017-08-11 17:12 | NUR ---
Therapist prompted client to attend daily group sessions. Client stated he would attend.
--- NOTE | 2017-08-11 18:52 | NUR ---
END OF SHIFT Patient is 36 year old male admitted for medically supervised withdrawal from heroin and alprazolam. Patient is full code with NKA. Patient is alert and oriented X4. On 4-Day Ativan and 5-day Subutex taper. Most recent CIWA:2 and COWS: 4. Patient reports mild anxiety, body aches, declined prn when offered. Compliant with routine meds during this shift. Patient tolerating meals without n/v. classification analystmajor assembly lineman will continue to monitor patient. Addendum: 08/11/17 at 1902 by SHAISTA WILKINSON RN PPD skin test on LFA read, negative result.
--- NOTE | 2017-08-11 19:30 | NUR ---
START OF SHIFT Pt is a 36 y/o male admitted on 08/08/17 for opiate dependence. Pt was dependent on heroin IV 0.5-1 gram daily for 3 months. Pt is on seizure/fall precautions, NKA, full code, regular diet. 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 Pt reports PMH of hepatitis C. Pt is on a 5 day Subutex and 4 day Ativan taper that started 08/09/17, tolerating well. Upon assessment pt presents with anxiety, body aches 2/10, difficulty sleeping, occasional agitation, dysphoria, anhedonia and fatigue. Respirations 16, even and unlabored. Denies N/V/D. Denies chest pain or SOB. Medications due. Safety measures in place. Call light within reach. Will continue to monitor.
[2017-08-11 20:00] VITALS: BP 116/65
[2017-08-11] MEDS: CLONIDINE HCL 0.1 MG TABLET PO SCH (21:00)
--- NOTE | 2017-08-11 21:00 | NUR ---
SCHEDULED CLONIDINE 0.1 MG HELD BP 116/65, HR 90, orders to hold if BP < 100/70. Safety measures in place. Call light within reach. Will continue to monitor.
--- NOTE | 2017-08-12 | NUR ---
COW/CIWA DEFERRED AND VITALS REFUSED Pt is laying in bed with eyes closed, COW/CIWA deferred, to be assessed when pt is awake per orders. Vitals refused. Respirations 16, even and unlabored. Safety measures in place. Call light within reach. Will continue to monitor.
--- NOTE | 2017-08-12 07:18 | NUR ---
END OF SHIFT Pt is a 36 y/o male admitted on 08/08/17 for opiate dependence. Pt was dependent on heroin IV 0.5-1 gram daily for 3 months. Pt is on seizure/fall precautions, NKA, full code, regular diet. 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 Pt reports PMH of hepatitis C. Pt is on a 5 day Subutex and 4 day Ativan taper that started 08/09/17, tolerating well. Pt presented with anxiety, body aches 2/10, difficulty sleeping, occasional agitation, dysphoria, anhedonia and fatigue. Scheduled medications administered, effective in S/S of withdrawal as verbalized by pt. Scheduled Clonidine held at 2100 d/t BP 116/65. Last COW 4 CIWA 4 at 1999. Pt slept 5 hours. Intake 2040 ml, void x 5, stool x 0. Safety measures in place. Call light within reach. Pts needs have been met. Endorsed to day shift nurse.
--- NOTE | 2017-08-12 07:45 | NUR ---
START OF SHIFT Rcvd endorsement from ongoing nurse, client is in room, he is a/o x 4, he presents with anxious mood, flat affect, and flushed face. He reports decreased appetite, fatigue, restless legs, body aches, and abdominal cramps.He denies any N/V/D. He denies any SI/HI. Encouraged client to attend group therapy for skills to maintain sober. Encouraged client to increase PO fluid as tolerated to facilitate detox. Client is a 36 y/o male, admitted to [facility] for withdrawal from alprazolam and heroin. He is on 4 day Ativan taper, 5 day Subutex taper (day 4), tolerating well. Last CIWA 4 @ 1999. PRN Toradol 30mg Inj IM for generalized body aches 05/19, noted effective. She slept 5 hrs. He reports a hx of withdrawal-induced seizures, Client reports allergy to NKA , he is full code, regular diet. Side rails x 2 up/padded for seizure precautions. Call light within reach. Addendum: 08/12/17 at 1044 by BEATRICE MONSALVE RN Client had an uneventful night, no PRN's. He slept 5 hrs.
[2017-08-12] MEDS: BUPRENORPHINE HCL 2 MG TAB.SUBL SL SCH ×3 (08:20→21:01)
[2017-08-12] MEDS: GABAPENTIN 300 MG CAPSULE PO SCH ×3 (08:20→21:00)
[2017-08-12] MEDS: DICYCLOMINE HCL 20 MG TABLET PO SCH ×3 (08:20→21:01)
[2017-08-12] MEDS: LORAZEPAM 1 MG TABLET PO SCH ×2 (08:20→21:00)
[2017-08-12 08:25] VITALS: BP 107/74
[2017-08-12 12:40] VITALS: BP 103/65
--- NOTE | 2017-08-12 15:04 | NUR ---
PRN Clonidine 0.1mg PO, Vistaril 25mg PO administered for irritation, chills and anxiety respectively. Client is pacing in his room, difficult to stay still, increased P 92. Will continue to monitor. Call light within reach.
--- NOTE | 2017-08-12 16:04 | NUR ---
Reassessment PRN Clonidine 0.1mg PO, Vistaril 25mg PO effective, client states feeling calm, he is able to join group therapy
[2017-08-12 16:55] VITALS: BP 119/62
--- NOTE | 2017-08-12 19:00 | NUR ---
END OF SHIFT Client is a 36 y/o male, a/o X 4, continue to present with anxious mood, flat affect. Client was admitted to [facility] for withdrawal from alprazolam and heroin. He is on 4 day Ativan taper, 5 day Subutex taper (day 4), tolerating well. Last CIWA 4/ COWS 4 @ 1655. PRN Clonidine 0.1mg PO, Vistaril 25mg PO administered for irritation, chills and anxiety respectively, noted effective. Client is compliant with group therapy. Adequate PO fluid intake 2525mL, void x 10, stool x 1. He reports a hx of withdrawal-induced seizures, Client reports allergy to NKA , he is full code, regular diet. Side rails x 2 up/padded for seizure precautions. Call light within reach.
--- NOTE | 2017-08-12 19:15 | NUR ---
START OF SHIFT Patient is 36-year-old male admitted on 08/08/17 for Heroin dependency and recent Xanax dependency. Patient is HEP C positive, and has past surgical history of septum surgery and bilateral knee repair. Patient denies other past medical history. Patient is currently on a 5-day Subutex taper and a modified 4-day Ativan taper, tolerating well. Patient is FULL code, NKA, and on regular diet. Upon assessment, patient is alert and oriented x4, mildly anxious and verbally reports being worried about his current situation with rehab and his girlfriend. Patient is on fall and seizure precautions, safety measures in place, bed locked in low position, side rails up x2, call light within reach. Will continue to monitor.
[2017-08-12 20:01] VITALS: BP 122/56
[2017-08-12] MEDS: CLONIDINE HCL 0.1 MG TABLET PO SCH (21:00)
--- NOTE | 2017-08-12 21:01 | NUR ---
CLONIDINE HELD FOR LOW BP Patient's blood pressure is 122/56. Clonidine was held per order.
--- NOTE | 2017-08-13 | NUR ---
MIDNIGHT VITALS REFUSED, COWS & CIWA DEFERRED Patient refused to be woken up for midnight vital signs. Patient's breathing is even and unlabored, respirations are 16/min. Patient is asleep, COWS and CIWA cannot be scored at this time. To be assessed while patient is awake, per protocol. Safety measures in place, call light within reach. Will continue to monitor.
--- NOTE | 2017-08-13 04:00 | NUR ---
0400 VITALS REFUSED, COWS & CIWA DEFERRED Patient refused to be woken up for 0400 vital signs. Patient's breathing is even and unlabored, respirations are 16/min. Patient is asleep, COWS and CIWA cannot be scored at this time. To be assessed while patient is awake, per protocol. Safety measures in place, call light within reach. Will continue to monitor.
--- NOTE | 2017-08-13 07:10 | NUR ---
START OF SHIFT Patient is 36-year-old male admitted on 08/08/17 for Heroin dependency and recent Xanax dependency. Patient is HEP C positive, and has past surgical history of septum surgery and bilateral knee repair. Patient denies other past medical history. Patient is currently on a 5-day Subutex taper and a modified 4-day Ativan taper, tolerating well. Patient is FULL code, NKA, and on regular diet. Patient's scheduled clonidine held for low BP. Patient slept total of 7 hrs, intake 1,350 mL, void x4, stool x0. Last COWS 4 and CIWA 5. Patient is on fall and seizure precautions, safety measures in place, bed locked in low position, side rails up x2, call light within reach. Will endorse to day shift. Addendum: 08/13/17 at 0730 by JAS TAMAYO LVN THIS NOTE IS END OF SHIFT
[2017-08-13 07:30] VITALS: BP 94/67
--- NOTE | 2017-08-13 07:58 | NUR ---
START OF SHIFT 36-year-old male, admitted 08/08/17 for Heroin and Xanax dependency. Hx HEP C positive, septum surgery, bilateral knee repair. Pt on 5-day Subutex taper and a modified 4-day Ativan taper. Patient is FULL code, NKA, and on regular diet. Skin intact. Pt on fall and seizure precautions. Received report from night RN. Last COWS 4 and CIWA 5 at 8 PM. No PRN medications given during the night. Pt slept 7 hours. Upon 0730 nursing round, pt is alert. Bed locked in low position, side rails up x2 and padded, call light within reach. Will continue to monitor.
[2017-08-13 08:00] VITALS: BP 94/67
[2017-08-13] MEDS: DICYCLOMINE HCL 20 MG TABLET PO SCH ×3 (08:35→21:45)
[2017-08-13] MEDS: GABAPENTIN 300 MG CAPSULE PO SCH ×3 (08:35→21:45)
[2017-08-13] MEDS ORDERED: BUPRENORPHINE HCL 2 MG TAB.SUBL SL SCH (09:00)
[2017-08-13] MEDS ORDERED: LORAZEPAM 1 MG TABLET PO SCH (09:00)
[2017-08-13 12:00] VITALS: BP 121/69
[2017-08-13 17:00] VITALS: BP 106/71
--- NOTE | 2017-08-13 18:55 | NUR ---
END OF SHIFT 36-year-old male, admitted 08/08/17 for Heroin and Xanax dependency. Hx HEP C positive, septum surgery, bilateral knee repair. Pt on 5-day Subutex taper and a modified 4-day Ativan taper. Patient is FULL code, NKA, and on regular diet. Skin intact. Pt on fall and seizure precautions. Pt tolerated Ativan and Subutex taper with the following scores. At 0800, COWS 4 and CIWA 1. At 1200, COWS 2 and CIWA 2. At 1700, COWS 2 and CIWA 1. Vitals WNL. No PRN medications given. Pt attending group. Report given to night RN. Bed locked in low position, side rails up x2 and padded, call light within reach.
--- NOTE | 2017-08-13 19:10 | NUR ---
START OF SHIFT Patient is 36-year-old male admitted on 08/08/17 for Heroin dependency and recent Xanax dependency. Patient is HEP C positive, and has past surgical history of septum surgery and bilateral knee repair. Patient denies other past medical history. Patient has completed a 5-day Subutex taper and a modified 4-day Ativan taper, tolerated well. Patient is FULL code, NKA, and on regular diet. Upon assessment, patient is alert and oriented x4, mildly anxious and verbally reports being worried about late signs and symptoms of withdrawal, since he has completed his tapers. Patient is on fall and seizure precautions, safety measures in place, bed locked in low position, side rails up x2, call light within reach. Will continue to monitor.
[2017-08-13] MEDS ORDERED: DIPH50CA37 PO (19:16)
[2017-08-13] MEDS ORDERED: HYDR-3895 PO (19:16)
[2017-08-13] MEDS ORDERED: DICY20TA28 PO (19:16)
[2017-08-13] MEDS ORDERED: IBUP-1955 PO (19:16)
[2017-08-13] MEDS ORDERED: GABA-534 PO (19:16)
[2017-08-13] MEDS ORDERED: METH-406 PO (19:16)
[2017-08-13] MEDS ORDERED: CLON0.1T14 PO (19:16)
[2017-08-13 20:00] VITALS: BP 115/64
[2017-08-13] MEDS: CLONIDINE HCL 0.1 MG TABLET PO SCH (21:44)
[2017-08-13] MEDS: diphenhydrAMINE 50 MG CAPSULE PO PRN (21:45)
--- NOTE | 2017-08-13 21:45 | NUR ---
PRN BENADRYL Patient reports difficulty sleeping and has requested aid. PRN Benadryl given PO at 2145. Patient's breathing is even and unlabored, safety measures in place. Call light within reach, will reassess in one hour.
--- NOTE | 2017-08-13 22:45 | NUR ---
PRN BENADRYL REASSESSMENT Patient is in bed with eyes closed resting, breathing is even and unlabored. PRN Benadryl effective. Safety measures in place, will continue to monitor.
--- NOTE | 2017-08-14 07:15 | NUR ---
END OF SHIFT Patient is 36-year-old male admitted on 08/08/17 for Heroin dependency and recent Xanax dependency. Patient is HEP C positive, and has past surgical history of septum surgery and bilateral knee repair. Patient denies other past medical history. Patient has completed a 5-day Subutex taper and a modified 4-day Ativan taper, tolerated well. Patient scheduled for discharge today. Last COWS 1, CIWA 2. PRN Benadryl given to help patient sleep, effective. Patient is FULL code, NKA, and on regular diet. Patient slept a total of 8 hours, intake of 500mL, void x1, stool x0. Patient is on fall and seizure precautions, safety measures in place, bed locked in low position, side rails up x2, call light within reach. Will endorse to day shift.
--- NOTE | 2017-08-14 07:39 | NUR ---
START OF SHIFT Rcvd endorsement from ongoing nurse, client is in room, he is a/o x 4, he presents with anxious mood. He reports feeling not rested after a night sleep, fatigue and abdominal cramps.He denies any N/V/D. He denies any SI/HI. Client is scheduled for discharge this am to [facility]. Client is a 36 y/o male, admitted to [facility] for withdrawal from alprazolam and heroin. He completed 4 day Ativan taper, 5 day Subutex taper, tolerated well. Last CIWA 2/ COWS 1 @ 1999. PRN Benadryl 50mg PO for inability to sleep, he slept 8 hrs. He reports a hx of withdrawal-induced seizures, Client reports allergy to NKA , he is full code, regular diet. Side rails x 2 up/padded for seizure precautions. Call light within reach.
[2017-08-14 08:14] VITALS: BP 115/70
[2017-08-14 08:26] VITALS: BP 115/70
[2017-08-14] MEDS: GABAPENTIN 300 MG CAPSULE PO SCH (08:26)
[2017-08-14] MEDS: CLONIDINE HCL 0.1 MG TABLET PO SCH (08:26)
[2017-08-14] MEDS: DICYCLOMINE HCL 20 MG TABLET PO SCH (08:27)
--- NOTE | 2017-08-14 10:55 | NUR ---
Discharge note Client was admitted for alprazolam and heroin withdrawal. Client has a recent CIWA 2/ COWS 3. Client VS are WNL. Client LBM was 08/14/17. Client denies any SI/HI. Client verbalized his understanding of the discharge instructions. Client has no complaints at this time. Client discharge instructions and all belongings returned to client. All needs addressed at this time. Client ID band removed, client ambulated off of unit. Dr. Tillman notified.
== END 2017-08-14 09:55 | disposition other institution (70) | DRG 895 ==
LOC: SRC 21:40
PROVIDERS: ADMIT Internal Medicine; ATTEND Internal Medicine
PROC: HZ2ZZZZ Detoxification Services for Substance Abuse Treatment (ICD-10-PCS; principal; 2017-08-08)
PROC: HZ31ZZZ Individual Counseling for Substance Abuse Treatment, Behavioral (ICD-10-PCS; 2017-08-11)
PROC: HZ41ZZZ Group Counseling for Substance Abuse Treatment, Behavioral (ICD-10-PCS; 2017-08-12)
DX: F11.23 Opioid dependence with withdrawal (principal); B19.20 Unspecified viral hepatitis C without hepatic coma; E86.0 Dehydration; F17.210 Nicotine dependence, cigarettes, uncomplicated; Z81.1 Family history of alcohol abuse and dependence; F10.21 Alcohol dependence, in remission; F14.21 Cocaine dependence, in remission; F15.21 Other stimulant dependence, in remission; F13.230 Sedative, hypnotic or anxiolytic dependence with withdrawal, uncomplicated; R79.89 Other specified abnormal findings of blood chemistry
CPT/HCPCS: 36415; 70030-TC; 80307; 83735; 85025; 86580; 86592; 86705; 86803; 87340; 87806; G0480; Q0163